=== PATIENT | female | born 1965 | race Native Hawaiian/Other Pacific Islander ===

== ENCOUNTER 2016-10-25 17:24 | Emergency (ER) | payer OTHER ==
[~2016-10-25] VITALS: Ht 165.1 cm; Wt 77.1 kg
[~2016-10-25 17:24] MED LIST: LORCET PLUS 7.51 TAB PO; OMEP40CA PO
[2016-10-25 18:38] VITALS: BP 138/81; TEMP 98.1
== END 2016-10-25 18:46 | disposition home or self-care (01) ==
LOC: ED 17:24
DX: M54.42 Lumbago with sciatica, left side (principal)
CPT/HCPCS: 96372; 99283; J1170; J2550

== ENCOUNTER 2016-12-24 10:42 | Observation (INO) | payer OTHER ==
[~2016-12-24] VITALS: Ht 165.1 cm; Wt 81.8 kg
--- NOTE | 2016-12-24 11:39 | NUR ---
ATTEMPTED ONE STICK AND THEN PATIENT REFUSED.
[2016-12-24 12:00] VITALS: BP 152/93; TEMP 98.1
[2016-12-24 12:14] LABS: PLATELET COUNT 264 K/uL (152-353)
[2016-12-24 13:21] LABS: SODIUM 137 mmol/L (136-145)
[2016-12-24 13:40] VITALS: BP 152/93; TEMP 98.1; Ht 165.1 cm; Wt 81.8 kg
[2016-12-24] MEDS ORDERED: LORA1TAB17 PO (15:44)
[2016-12-24] MEDS ORDERED: MELOXICAM7.5 MG OR (15:48)
[2016-12-24] MEDS ORDERED: LORTAB 7.5-3251 TAB PO (15:49)
[2016-12-24 16:00] VITALS: BP 123/80; TEMP 98
[2016-12-24] MEDS ORDERED: PRILOSEC OTC20 MG OR (16:27)
[2016-12-24 20:00] VITALS: BP 92/54; TEMP 98.7
[2016-12-25] VITALS: BP 113/71; TEMP 99
[2016-12-25 04:00] VITALS: BP 113/74; TEMP 98.2
[2016-12-25 05:43] LABS: PLATELET COUNT 273 K/uL (152-353)
[2016-12-25 06:30] LABS: SODIUM 137 mmol/L (136-145)
[2016-12-25 08:00] VITALS: BP 123/78; TEMP 98.6
== END 2016-12-25 14:02 | disposition home or self-care (01) ==
LOC: MED/SURG 10:42
PROVIDERS: Internal Medicine; ADMIT Nurse Practitioner
DX: J44.1 Chronic obstructive pulmonary disease with (acute) exacerbation (principal); E03.8 Other specified hypothyroidism
CPT/HCPCS: 36415; 36591; 80053; 83735; 84443; 85027; 86738; 87040; 87070; 87077; 87205; 94640; 94664; 94760; 96365; 96366; 96367; 96374; 96375; 99220; G0378; G0379; J0696; J2060; J2920; J2930

== ENCOUNTER 2017-11-12 09:30 | Emergency (ER) | payer OTHER ==
[~2017-11-12] VITALS: Ht 165.1 cm; Wt 74.8 kg
[~2017-11-12 09:30] MED LIST changes: +LORA1TAB17 PO; +LORTAB 7.5-3251 TAB PO; +MELOXICAM7.5 MG OR; +PRILOSEC OTC20 MG OR
[2017-11-12 10:03] LABS: PLATELET COUNT 351 K/uL (152-353)
[2017-11-12 13:38] VITALS: BP 128/74; TEMP 97.5
== END 2017-11-12 13:43 | disposition home or self-care (01) ==
LOC: ED 09:30
DX: R10.84 Generalized abdominal pain (principal)
CPT/HCPCS: 80053; 81000; 85027; 96374; 99284; J2405; Q9963

== ENCOUNTER 2020-04-20 11:29 | Emergency (ER) | payer OTHER ==
[~2020-04-20] VITALS: Ht 165.1 cm; Wt 80.7 kg
[2020-04-20 13:16] VITALS: BP 148/87; TEMP 98
== END 2020-04-20 13:16 | disposition home or self-care (01) ==
LOC: ED 11:29
PROC: 0H9QXZZ Drainage of Finger Nail, External Approach (ICD-10-PCS; principal; 2020-04-20)
DX: S60.122A Contusion of left index finger with damage to nail, initial encounter (principal); W23.0XXA Caught, crushed, jammed, or pinched between moving objects, initial encounter; Y92.89 Other specified places as the place of occurrence of the external cause
CPT/HCPCS: 96372; 99283; J2270; J2405

== ENCOUNTER 2021-10-23 14:17 | Outpatient (CLI) | payer BC | END 2021-10-23 19:58 | disposition home or self-care (01) | LOC: RAD 14:17 | PROVIDERS: ATTEND Nurse Practitioner Primary Care | DX: M54.59 Other low back pain (principal); M25.552 Pain in left hip ==

== ENCOUNTER 2022-03-12 10:55 | Emergency (ER) | payer BC ==
[~2022-03-12] VITALS: Ht 165.1 cm; Wt 90.7 kg
[2022-03-12] MEDS ORDERED: AZIT250T3 PO (13:07)
[2022-03-12 13:15] VITALS: BP 118/66; TEMP 98
== END 2022-03-12 13:15 | disposition home or self-care (01) ==
LOC: ED 10:55
DX: R50.9 Fever, unspecified (principal); R52 Pain, unspecified; R05.8 Other specified cough; R53.1 Weakness; R11.10 Vomiting, unspecified; Z20.822 Contact with and (suspected) exposure to COVID-19
CPT/HCPCS: 87502; 87635; 87651; 99283; U0003

== ENCOUNTER 2022-03-14 20:57 | Emergency (ER) | payer BC ==
[~2022-03-14] VITALS: Ht 165.1 cm; Wt 90.7 kg
[~2022-03-14 20:57] MED LIST changes: +AZIT250T3 PO
[2022-03-14 23:15] VITALS: BP 131/80; TEMP 99.1
== END 2022-03-14 23:20 | disposition home or self-care (01) ==
LOC: ED 20:57
DX: U07.1 COVID-19 (principal); F17.210 Nicotine dependence, cigarettes, uncomplicated
CPT/HCPCS: 96372; 99282; J1885

== ENCOUNTER 2022-05-17 16:11 | Outpatient (CLI) | payer BC ==
[2022-05-17 16:35] LABS: PLATELET COUNT 336 K/uL (152-353)
[2022-05-17 16:54] LABS: POTASSIUM 4.6 mmol/L (3.6-5.2)
== END 2022-05-17 21:00 | disposition home or self-care (01) ==
LOC: LABW 16:11
PROVIDERS: ATTEND Student in an Organized Health Care Education/Training Program
DX: I10 Essential (primary) hypertension (principal); R73.03 Prediabetes; E78.2 Mixed hyperlipidemia; M54.59 Other low back pain
CPT/HCPCS: 36415; 80053; 80061; 83036; 85027

== ENCOUNTER 2022-06-24 14:15 | Emergency (ER) | payer BC ==
[~2022-06-24] VITALS: Ht 165.1 cm; Wt 90.7 kg
[2022-06-24 14:21] VITALS: TEMP 98.9
[2022-06-24 15:13] VITALS: BP 122/68
== END 2022-06-24 15:20 | disposition home or self-care (01) ==
LOC: ED 14:15
DX: F41.8 Other specified anxiety disorders (principal); M54.42 Lumbago with sciatica, left side; G89.29 Other chronic pain
CPT/HCPCS: 96372; 99283; J1885; J2405

== ENCOUNTER 2022-06-26 21:15 | Emergency (ER) | payer BC ==
[~2022-06-26] VITALS: Ht 165.1 cm; Wt 90.7 kg
[2022-06-26 22:08] LABS: PLATELET COUNT 287 K/uL (152-353)
[2022-06-26 22:13] LABS: POTASSIUM 3.9 mmol/L (3.6-5.2)
[2022-06-26 23:40] VITALS: BP 122/85; TEMP 98.5
== END 2022-06-26 23:40 | disposition home or self-care (01) ==
LOC: ED 21:15
PROVIDERS: Emergency Medicine
DX: R11.0 Nausea (principal); R19.7 Diarrhea, unspecified; F41.8 Other specified anxiety disorders
CPT/HCPCS: 36415; 80053; 80320; 83690; 85027; 96372; 99283; J1885; J2405

== ENCOUNTER 2022-07-27 16:21 | Outpatient (CLI) | payer BC | END 2022-07-27 22:22 | disposition home or self-care (01) | LOC: RAD 16:21 | PROVIDERS: ATTEND Student in an Organized Health Care Education/Training Program | DX: M79.672 Pain in left foot (principal); M54.59 Other low back pain ==